=== PATIENT | female | born 1960 | race Caucasian/White ===

== ENCOUNTER 2018-10-11 07:13 | Outpatient (CLI) | payer OTHER ==
--- NOTE | 2018-10-11 22:34 | MRI Report ---
Reason: PAIN IN UNSPECIFIED KNEE Procedure Date: 10/11/2018 Accession Number: [id number] / [id number] Procedure: MRI - Knee LT W/O CPT Code: FULL RESULT: EXAM: LEFT KNEE MRI WITHOUT CONTRAST EXAM DATE: 10/11/2018 08:27 AM. CLINICAL HISTORY: Pain in unspecified knee. Left knee pain with clicking and popping with walking. COMPARISON: None. TECHNIQUE: Multiplanar, multisequence T1-weighted and fluid-sensitive sequences of the knee without contrast. Other: None. FINDINGS: Bones: Subcortical focal 6 mm marrow edema or cyst medial patellar facet. Moderate chondromalacia medial trochlear groove. Articular Cartilage: Severe chondromalacia medial patellar facet. Medial Meniscus: Complex tear junction body and posterior horn medial meniscus. Lateral Meniscus: Horizontal tear junction body and posterior horn medial meniscus with extension to the superior articular surface. Cruciate Ligaments: The anterior and posterior cruciate ligaments are intact. Collateral Ligaments: The medial collateral and lateral collateral ligamentous structures are intact. Tendons: The quadriceps, patellar, semimembranosus, and popliteus tendons are unremarkable. Musculature: No edema or fatty atrophy. Other: Small quantity of fluid patellar recesses. Increased fluid gastrocnemius semimembranosus bursa 1.8 x 1.1 cm in transverse dimension 4.7 cm in height. No loose bodies. The medial and lateral retinacula are intact. Subcutaneous edema superficial to the patellar ligament.. IMPRESSION: 1. Severe chondromalacia medial patellar facet. 2. Complex tear junction body and posterior horn medial meniscus. 3. Horizontal tear junction body and posterior horn lateral meniscus. RADIA
== END 2018-10-11 07:14 | disposition home or self-care (01) ==
LOC: DI 07:13
PROVIDERS: ATTEND Nurse Practitioner Family
DX: M22.42 Chondromalacia patellae, left knee (principal); S83.232A Complex tear of medial meniscus, current injury, left knee, initial encounter; S83.282A Other tear of lateral meniscus, current injury, left knee, initial encounter

== ENCOUNTER 2018-11-08 07:01 | Day surgery (SDC) | payer OTHER ==
[~2018-11-08 07:01] MED LIST: CLINDAMYCIN 600 MG/50 ML 50 ML IV ONE
[2018-11-08] MEDS ORDERED: ePHEDrine 50 MG/ML VIAL IVP ONE (07:02)
[2018-11-08] MEDS ORDERED: fentaNYL 100 MCG/2 ML VIAL IVP ONE (07:02)
[2018-11-08] MEDS ORDERED: ONDANSETRON 4 MG/2 ML VIAL IVP ONE (07:02)
[2018-11-08] MEDS ORDERED: DEXAMETHASONE 4 MG/ML VIAL IVP ONE (07:02)
[2018-11-08] MEDS ORDERED: LIDOCAINE-MPF 2% 5 ML VIAL IM ONE (07:02)
[2018-11-08] MEDS ORDERED: PROPOFOL 200 MG/20 ML VIAL IVP ONE (07:02)
[2018-11-08] MEDS ORDERED: MIDAZOLAM 2 MG/2 ML VIAL IVP ONE (07:02)
--- NOTE | 2018-11-08 07:43 | ANESTHESIA ---
Pre-Anesthesia VS, & Labs - Diagnosis Left knee meniscus repair - Procedure Left knee scope Vital Signs: Temp Pulse Resp BP Pulse Ox 37.1 C 87 16 115/73 95 11/08/18 07:23 11/08/18 07:23 11/08/18 07:23 11/08/18 07:23 11/08/18 07:23 Height 5 ft 7 in Weight (kg) 74.84 kg - NPO >8 hours, Other (Coffee at 0525) - Is Patient ?: No Home Medications and Allergies Home Medications: Ambulatory Orders Bupropion HCl [Bupropion Xl] 300 mg PO 11/04/18 Omeprazole Magnesium [Prilosec] 20 mg PO 11/04/18 Bupropion HCl [Bupropion Xl] 300 mg PO 11/04/18 Omeprazole Magnesium [Prilosec] 20 mg PO 11/04/18 Allergies/Adverse Reactions: Allergies Allergy/AdvReac Type Severity Reaction Status Date / Time Sulfa (Sulfonamide AdvReac Severe HIVES/RASH Verified 11/04/18 11:35 Antibiotics) Penicillins AdvReac HIVES/RASH Verified 11/04/18 11:35 Anes History & Medical History - Anesthetic History Anesthesia Complications: reports: No previous complications Family history of Anesthesia Complications: Denies Family history of Malignant Hyperthermia: Denies - Medical History Cardiovascular: reports: None Pulmonary: reports: None Gastrointestinal: reports: None Urinary: reports: None Neuro: reports: None Musculoskeletal: reports: Other Endocrine/Autoimmune: reports: None Blood Disorders: reports: None Skin: reports: None Smoking Status: Never smoker Psychosocial: reports: No issues indicated - Surgical History Eyes Ears Nose Throat (EENT): Rhinoplasty Gynecologic: Other Orthopedic: Arthroscopic surgery Exam General: Alert, Oriented x3, Cooperative Dental: WNL Mouth Opening: Greater than 4 Fingerbreadths Neck Mobility: Normal Mallampati classification: II Thyromental Distance: 4-6 cm Respiratory: Lungs clear Cardiovascular: Normal S1, Normal S2 Neurological: Normal speech Mental/Cognitive Status: Alert/Oriented X3 Cognitive Status: Within normal limits Plan Anesthesia Type: Spinal Consent for Procedure(s) Verified and Reviewed: Yes Code Status: Attempt Resuscitation ASA classification: 2-Mild systemic disease Is this case an emergency?: No
[2018-11-08] MEDS ORDERED: EPINEPHrine 1 MG/ML AMP ONE (07:48)
[2018-11-08] MEDS ORDERED: LACTATED RINGERS 1,000 ML IV ONE (07:54)
[2018-11-08] MEDS: BUPIVACAINE 0.25% PF 30 ML VIAL ONE ×2 (09:13→10:16)
[2018-11-08] MEDS ORDERED: oxyCODONE 5 MG TABLET PO PRN (10:41)
[2018-11-08] MEDS ORDERED: ONDANSETRON 4 MG/2 ML VIAL IVP PRN (10:41)
[2018-11-08] MEDS ORDERED: ACETAMINOPHEN 1,000 MG/100 ML 100 ML IV ONE (10:59)
[2018-11-08] MEDS ORDERED: KETOROLAC 15 MG/ML VIAL ONE (11:03)
--- NOTE | 2018-11-08 11:34 | OPERATIVE REPORT ---
Operative Report - General Procedure Date: 11/08/18 Planned Procedure: Left knee arthroscopy, medial meniscal debridement, lateral meniscal debridement Pre-Op Diagnosis: Left knee medial and lateral meniscal tears Procedure Performed: Left knee arthroscopy, medial meniscal debridement, lateral meniscal debridement, limited intraarticular debridement, medial & lateral patella and medial femoral condyle shaving chondroplasty. Post Op Diagnosis: Left knee medial and lateral meniscal tears, plica, chondromalacia - Procedure Note Primary Surgeon: TERI JIMENEZ Anesthesia Technique: Spinal Estimated Blood Loss (mL): 5 - Other Other Information/Narrative: OPERATION PERFORMED: 1. Left knee arthroscopy, medial meniscal debridement, lateral meniscal debridement, limited intraarticular debridement, medial and lateral patella and medial femoral condyle shaving chondroplasty. Examination Under Anesthesia: ROM 0-125 Stable dial at 30 & 90 degree Stable to varus and valgus stressing at 0 & 30 degrees IA Jaxon Arthrocopic Findings: Left knee: 1. Patella: [place] grade 2-4 changes of the medial patellar facet, grade 2-3 changes of the central ridge, grade 2-4 changes of the lateral patellar facet 2. Trochlea: Mild chondral grooving (Grade 2). 3. Medial Compartment: Femoral cartilage: Grade 0-1 in weightbearing areas, grade 2-4 changes at the anterior superior medial portion of the medial femoral condyle; there is an area of full-thickness cartilage loss which appears to be anterior/superior to the weightbearing surface and measures approximately 5 mm medial to lateral and 15 mm proximal to distal. Tibial cartilage: Diffuse grade I-II changes. Medial meniscus: Degenerative complex tear from the mid body posterior to the root, with significant fraying and degeneration, debrided to a stable rim. The meniscal root was stable to probing following debridement. 4. Lateral Compartment: Femoral cartilage Grade 0-I in weight bearing areas. Tibial cartilage Grade II changes with deeper fissuring than medial compartment. Lateral meniscal root intact with mild fraying, lateral meniscus with degenerative tear at the junction of the posterior horn and body. The tear was debrided to a stable rim. 5. ACL and PCL: Intact COMPLICATIONS: None IMPLANTS: None Tourniquet: approximately 70 minutes, 250 mmHg, left thigh Indications for procedure: The patient is a 57-year-old female who sustained a reported hyperextension injury to her left knee while hiking approximately 3 months ago. She reports that she sustained an injury while ascending and was able to complete the Ascent without significant difficulty however on the trip down her knee became more getachew nful and swollen. She was treated with activity modification oral nonsteroidal medications as well as physical therapy, having recently completed approximately 2-1/2 months of physical therapy, without significant improvement in her symptoms. An MRI was obtained which demonstrated tricompartmental chondromalacia worse in the patellofemoral articulation with some additional bony edema in the medial tibial and femoral condyles. MRI also demonstarted medial and lateral menisal tears. On exam, her pain localized to the medial and lateral joint lines and was, exacerbated with high degrees of flexion as well as some anterior medial knee pain in the vicinity of the medial femoral condyle/medial patellar border. Treatment options were discussed to include continued nonoperative management, injections as well as operative intervention consisting of left knee arthroscopy with meniscal debridement. She had failed non-operative treatment to include physical therapy, icing, heat, and oral nonst eroidal medications. She did not desire an injection. The risks, benefits of surgical and nonoperative treatments were discussed. She elected to proceed with left knee arthroscopy with meniscal debridement. Surgical risks included pain, bleeding, infection, damage to nearby structures, lack of symptom relief, stiffness, need for further surgeries, DVT, PE, stroke, and even . We discussed the expected recovery time line. After discussion and answering questions, she wished to proceed with surgery; she signed a written consent form. Procedure Details: The patient was met in the pre-operative hold area. Persistence of symptoms and consent was verified. The patient verified the surgical site as the left knee. The left knee was initialed per our standard protocol. The patient then met with anesthesia and was brought back to the operating room and received a spinal anesthetic from the anesthesia team. They were then placed supine on the operating table. A well-padded tourniquet was placed on the left thigh. The left lower extremity was then prepped and draped in the usual sterile fashion. Following this, a surgical timeout was performed, verifying the correct patient, the correct procedure and the correct injection and surgical sites. We confirmed that perioperative antibiotics consisting of 600 mg of IV clindamycin had been administered. Everyone agreed to proceed. The Escmarch was used to exsanguinate the left lower extremity and the tourniquet was raised. An 11 blade scalpel was used to make an anterolateral arthroscopic portal, the anteromedial was created using needle localization and direct visualization. The arthroscope was introduced into the knee and a diagnostic arthroscopy was performed with the above-stated findings. A limited intraarticular debridement of the anterior fat pad and medial and lateral plicae was performed. Meniscal Debridement: Arthroscopic biters and the 4 mm sucker shaver were used to debride the medial meniscus back to a stable rim, a 2.5 mm shaver was used to debride the frayed degenerative meniscal tissue near the medial root. The arthroscopic probe was used to ensure that the remaining meniscal tissue was stable. We next turned our attention to the lateral compartment and a combination of arthroscopic biters and a 4mm sucker shaver were used to debride the lateral meniscus back to a stable rim. The arthroscopic probe was then used to ensure that the remaining meniscal tissue was stable Chondroplasty: A limited shaving chondroplasty of the medial facet of the patella, lateral facet of the patella and medial femoral condyle was performed. The arthroscopic instruments were then removed from the knee. The portals were closed with 3-0 Monocryl. 0.25% Marcaine plain was injected into the peria rticular soft tissues. The tourniquet was lowered. The incisions were dressed with Xeroform gauze, 4x4 gauze, an ABD and MARANDA stocking. The surgical drapes were removed. The patient was transferred to the hospital bed, and taken to the PACU for recovery in good condition. Postoperative plan: 1. Discharge home from the same day surgery facility once the patient has met discharge criteria. 2. Advance weightbearing as tolerated, range of motion as tolerated, and wean from crutches as tolerated as gait normalizes. 3. Return to clinic in 7-14 days for wound check. Will start formal PT at that time. 4. Allow advancement of activities as tolerated with full clearance for all activities anticipated in 6-8 weeks postoperatively.
[2018-11-08 14:57] VITALS: BP 108/61
== END 2018-11-08 07:02 | disposition home or self-care (01) ==
LOC: SDS 07:01
PROVIDERS: ATTEND Orthopaedic Surgery
PROC: 0SBD4ZZ Excision of Left Knee Joint, Percutaneous Endoscopic Approach (ICD-10-PCS; 2018-11-08)
PROC: 0SBD4ZZ Excision of Left Knee Joint, Percutaneous Endoscopic Approach (ICD-10-PCS; principal; 2018-11-08 08:30)
DX: S83.242A Other tear of medial meniscus, current injury, left knee, initial encounter (principal); S83.282A Other tear of lateral meniscus, current injury, left knee, initial encounter; M94.262 Chondromalacia, left knee; M67.52 Plica syndrome, left knee
CPT/HCPCS: 29880; J0131; J7120

== ENCOUNTER 2021-01-21 16:01 | Emergency (ER) | payer OTHER ==
[2021-01-21 16:12] VITALS: BP 142/71
[2021-01-21] MEDS ORDERED: PHENAZOPYRIDINE 100 MG TABLET PO STA (16:20)
--- NOTE | 2021-01-21 16:22 | ED Physician Documentation ---
History of Present Illness - Stated complaint Stated Complaint: FEMALE - Chief complaint Chief Complaint: Abd Pain - Additonal information Additional information: 60-year-old female presents emergency department for evaluation of 3 days bl adder discomfort dysuria urgency and frequency. Feels similar to her UTI she has had in the past though she has not had symptoms for more than a year. Denies any fevers flank pain or vomiting. Denies any history of hypertension or diabetes. No tobacco or alcohol use. No recent sexual activity. Review of Systems Constitutional: denies: Fever, Chills Eyes: reports: Reviewed and negative Ears: reports: Reviewed and negative Nose: reports: Reviewed and negative Throat: reports: Reviewed and negative Cardiac: reports: Reviewed and negative Respiratory: reports: Reviewed and negative : reports: Dysuria, Frequency, Hesitancy Skin: reports: Reviewed and negative PD PAST MEDICAL HISTORY - Past Medical History Cardiovascular: None Respiratory: None Neuro: None Endocrine/Autoimmune: None GI: None POCKET CREASER: None : None HEENT: None Psych: Depression Musculoskeletal: Other Derm: None - Past Surgical History Past Surgical History: Yes Ortho: Arthroscopic surgery /POCKET CREASER: Other HEENT: Rhinoplasty - Present Medications Home Medications: Ambulatory Orders Medication Instructions Recorded Confirmed Bupropion HCl [Bupropion Xl] 300 mg PO 11/04/18 Omeprazole Magnesium [Prilosec] 20 mg PO 11/04/18 Ibuprofen 3 PRN 11/08/18 Cefpodoxime Proxetil [Vantin] 100 mg PO Q12H #14 tablet 01/21/21 Phenazopyridine HCl [Pyridium] 200 mg PO TID PRN #6 tablet 01/21/21 - Allergies Allergies/Adverse Reactions: Allergies Allergy/AdvReac Type Severity Reaction Status Date / Time Sulfa (Sulfonamide AdvReac Severe HIVES/RASH Verified 01/21/21 16:12 Antibiotics) Penicillins AdvReac HIVES/RASH Verified 01/21/21 16:12 - Social History Does the pt smoke?: No Smoking Status: Never smoker Does the pt drink ETOH?: No Does the pt have substance abuse?: No - Immunizations Immunizations are current?: Yes - POLST Patient has POLST: No PD ED PE EXPANDED - General General: Alert, No acute distress - Cardiac Cardiac: Regular Rate, Radial strong equal - Respiratory Respiratory: Clear to ausultation elisa. No: Distress, Labored - Abdomen Abdomen: Normal Bowel sounds, Tender to palpation, Suprapubic (Suprapubic tenderness without guarding or rebound. Or CVA tenderness elicited.) - Derm Derm: Normal color, Warm and dry. No: Rash - Extremities Extremities: Normal. No: Deformity, Tenderness Results - Vitals Vitals: Vital Signs - 24 hr 01/21/21 16:08 Temperature 36.1 C L Heart Rate 76 Respiratory 16 Rate Blood Pressure 142/71 H O2 Saturation 96 Oxygen O2 Source Room air - Labs Labs: Laboratory Tests 01/21/21 16:14 Urine Color YELLOW Urine Clarity CLEAR Urine pH 5.5 Ur Specific [place] >=1.030 H Urine Protein NEGATIVE Urine Glucose (UA) NEGATIVE Urine Ketones NEGATIVE Urine Occult Blood TRACE-INTA Urine Nitrite NEGATIVE Urine Bilirubin NEGATIVE Urine Urobilinogen 0.2 (NORMAL) Ur Leukocyte Esterase TRACE H Urine RBC 6-10 H Urine WBC 11-25 H Ur Squamous Epith Cells FEW Squamous Urine Bacteria Few Ur Microscopic Review INDICATED Urine Culture Comments INDICATED PD MEDICAL DECISION MAKING - ED course Complexity details: reviewed results, re-evaluated patient, d/w patient ED course: 60-year-old presents emergency department with 3 days of bladder spasms urgency and frequency. No fevers flank pain or vomiting. Mild suprapubic discomfort on exam. Vital signs otherwise without worrisome findings. Urinalysis is consistent with early and mild cystitis. No findings on exam or history to suggest a sending infection or pyelonephritis. Patient will be prescribed Cefpodoxime as well as Pyridium. Emergent worrisome return precautions discussed. Departure - Departure Disposition: 01 Home, Self Care Clinical Impression: Cystitis Condition: Stable Record reviewed to determine appropriate education?: Yes Prescriptions: Phenazopyridine HCl [Pyridium] 200 mg PO TID PRN #6 tablet PRN Reason: dysuria Cefpodoxime Proxetil [Vantin] 100 mg PO Q12H #14 tablet Comments: Sultana you were seen today in the emergency department for bladder spasms. Your urine is consistent with early infection. Please fill the prescription for the Cefpodoxime at the pharmacy and begin taking twice daily for the next week. I have also prescribed some Pyridium which should help ease the bladder spasms but will cause your urine to turn bright orange. With the antibiotics I would expect reduced bladder spasm, frequency and urgency over the next 24 to 48 hours. If your symptoms are not improving, you develop fevers, have abdominal pain or vomiting then please return immediately to the ER for second evaluation. I have sent your prescriptions to the [facility] in [place].
[2021-01-21 16:40] LABS: BILIRUBIN,URINE NEGATIVE (NEGATIVE); GLUCOSE, URINE (UA) NEGATIVE (NEGATIVE); KETONES,URINE (UA) NEGATIVE (NEGATIVE); LEUKOCYTE ESTERASE, URINE TRACE (NEGATIVE); NITRITE,URINE NEGATIVE (NEGATIVE); OCCULT BLOOD,URINE TRACE-INTA (NEGATIVE); PH,URINE 5.5 PH (5.0-7.5); PROTEIN,URINE NEGATIVE (NEGATIVE); UROBILINOGEN,URINE 0.2 (NORMAL) E.U./dL (NORMAL)
[2021-01-21 16:48] LABS: CLARITY,URINE CLEAR (CLEAR); SQUAMOUS EPITHELIAL CELL,UR FEW Squamous (<= Few)
[2021-01-21 16:49] LABS: BACTERIA,URINE Few /HPF (None Seen)
== END 2021-01-21 17:14 | disposition home or self-care (01) ==
LOC: ED 16:01
DX: N30.90 Cystitis, unspecified without hematuria (principal); F32.9 Major depressive disorder, single episode, unspecified
CPT/HCPCS: 81001; 87086; 99283; A9270; 81003

== ENCOUNTER 2023-08-23 07:20 | Outpatient (CLI) | payer OTHER | END 2023-08-23 23:59 | disposition left against medical advice (07) | LOC: EMS 07:20 | DX: R07.89 Other chest pain (principal); M54.9 Dorsalgia, unspecified; M54.2 Cervicalgia; R42 Dizziness and giddiness ==